=== PATIENT | female | born 1975 | race African-American/Black ===

== ENCOUNTER 2019-02-19 08:13 | Day surgery (SDC) | payer OTHER ==
[2019-02-19 08:22] LABS: Urine Appearance CLEAR; Urine Blood NEGATIVE (NEG); Urine Color YELLOW; Urine Glucose NEGATIVE (NEG); Urine Microscopic Reflex NO UMIC; Urine Protein NEGATIVE (NEG); Urine Urobilinogen 0.2 mg/dL (0.2-1.0)
--- NOTE | 2019-02-19 08:23 | RAD REPORT ---
EXAM DESCRIPTION: RAD - Chest Pa And Lat (2 Views) - 02/19/2019 8:13 am CLINICAL HISTORY: preop Chest pain. COMPARISON: No comparisons FINDINGS: The lungs are clear except for a small calcified granuloma in the left lung base posterior ly. The heart is normal in size. No displaced fractures. IMPRESSION: No acute or concerning finding suspected.
[2019-02-19 08:24] LABS: Absolute Lymphocytes (CBC) 1.8 K/uL (0.7-4.9); Absolute Monocytes 0.5 K/uL (0.1-1.3); Absolute Neutrophil 4.6 K/uL (1.8-8.0); Basophils % 0.8 % (0-1.3); Eosinophils % 0.8 % (0-4.4); Hematocrit 42.8 % (36.0-45.0); Lymphocytes % 25.8 % (15.3-44.8); MPV 10.8 fL (7.6-11.3); RBC Red Blood Cell Count 4.41 M/uL (3.86-4.86)
[2019-02-19 08:27] LABS: Urine Bilirubin NEGATIVE (NEG)
[2019-02-19] MEDS ORDERED: CEFAZOLIN SODIUM 1 GM/VIAL ONE (08:30)
[2019-02-19] MEDS ORDERED: NS 0.9% VIAL 20 ML ONE (08:30)
[2019-02-19] MEDS ORDERED: GENTAMICIN SULF 80 MG/2ML INJ ONE (08:31)
[2019-02-19] MEDS ORDERED: Ringers Lactate 1,000 ML IV ONE ×4 (08:31→15:03)
[2019-02-19] MEDS ORDERED: BACITRACIN 50000 UNIT VIAL ONE (08:31)
[2019-02-19] MEDS ORDERED: Mastisol Adhesive Liq ONE (08:31)
[2019-02-19] MEDS ORDERED: CEFAZOLIN/SWI 1gm 1 GM/10 ML SYR ONE (08:48)
[2019-02-19] MEDS ORDERED: SCOPOLAMINE HYDROBROMIDE PATCH TD ONE (08:49)
[2019-02-19] MEDS ORDERED: PROPOFOL 200 MG/20 ML VIAL IV ONE (08:49)
[2019-02-19] MEDS ORDERED: MIDAZOLAM HCL 2 MG/2 ML INJ ONE ×2 (08:49→09:36)
[2019-02-19] MEDS ORDERED: GLYCOPYRROLATE 0.2 MG/ML SYR ONE (08:50)
[2019-02-19] MEDS ORDERED: LIDOCAINE 2% MPF 5 ML VIAL ONE ×2 (08:50→14:38)
[2019-02-19] MEDS ORDERED: FENTANYL CITR 250 MCG/5 ML ONE (08:50)
[2019-02-19] MEDS ORDERED: ROCURONIUM 50 MG/5 ML VIAL IV ONE ×2 (08:51→09:58)
[2019-02-19] MEDS ORDERED: ONDANSETRON 4 MG/2 ML VIAL ONE (08:53)
[2019-02-19] MEDS ORDERED: NEOSTIGMINE 1 MG/ML -10 ML VIAL ONE (08:53)
[2019-02-19] MEDS ORDERED: LIDOCAINE JELLY 2%- 5 ML TUBE ONE (08:56)
[2019-02-19] MEDS ORDERED: LANO/MINERAL OIL/PETRO 3.5 GM ONE (09:43)
[2019-02-19] MEDS ORDERED: DEXAMETHASONE 10 MG/ML VIAL ONE (10:16)
[2019-02-19] MEDS ORDERED: EPHEDRINE SULF 50 MG/ML VIAL ONE (12:53)
[2019-02-19] MEDS ORDERED: NA CHLORIDE 0.9% 0 ML ONE (13:10)
[2019-02-19] MEDS ORDERED: EPINEPHRINE/PF 1 MG/ML AMP ONE (13:10)
[2019-02-19] MEDS ORDERED: MEPERIDINE HCL 25 MG/0.5 ML ONE (13:49)
[2019-02-19] MEDS: HYDROMORPHONE HCL 1 MG/ML INJ ONE ×3 (14:40→14:58)
[2019-02-19] MEDS ORDERED: KETOROLAC 30 MG/ML INJ ONE (14:48)
[2019-02-19] MEDS ORDERED: HYDROMORPHONE HCL 1 MG/ML INJ ONE ×2 (15:09→15:21)
[2019-02-19] MEDS: FENTANYL CITR 100 MCG/2 ML ONE ×3 (15:18→15:34)
[2019-02-19] MEDS ORDERED: HYDROCODONE/APAP 10/325 TAB ONE (16:04)
[2019-02-19] MEDS ORDERED: DIPHENHYDRAMINE 25 MG TAB/CAP ONE (16:07)
--- NOTE | 2019-02-19 17:08 | EKG ---
Test Date: 2019-02-19 Test Time: 08:02:03 [place] Sequins: ALEX MEASUREMENT RESULTS: Intervals: Rate: 63 DC: 168 QRSD: 84 QT: 398 QTc: 407 [place]: P: 57 DC: 168 QRS: 62 T: 60 INTERPRETIVE STATEMENTS: Normal sinus rhythm Possible Left atrial enlargement Borderline ECG No previous ECG available for comparison Electronically Signed On 02-19-19 17:07:34 CDT by Naveen White
--- NOTE | 2019-02-20 01:49 | OP ---
Date of Procedure: 02/19/2019 Surgeon: Arjun Howard MD Work Station Support Specialist: Jonnie. Preoperative Diagnosis: Breast descent. Postoperative Diagnosis: Breast descent. Procedure Preformed: Breast lift. Anesthesia: General. Procedure In Detail: After satisfactory induction of general anesthesia, chest was prepped with Dura Prep. Dry sterile drapes were applied in the usual manner. The right breast and left breast were rahul th done simultaneously. A 42 template was used to outline the right and left areola. A 15-blade was used to make incision and transverse and curvilinear incisions were made with a 10-blade. The inter vening skin was de-epithelialized with EpiCut or dermabrader. The flap was then elevated cephalad to wards the sternum, clavicle, and anterior axillary line on both sides simultaneously. Flap was about 1.2 cm in thickness. This was done. Then, the inferior incision was made. The intervening skin wa s formed into a cone with 2-0 PDS. Straps were elevated at the 12 o'clock, 1:30, and 3 o'clock posit ion on the right side and mirror image on the left side. Excess breast tissue was excised, and then the cone was formed and the straps were elevated. The straps were then woven in and out of pectorali s major muscle, back to the base of the cone, back to the pectoralis major, back to the base of the c one, and sewn to themselves with 2-0 PDS. This was done for 12 o'clock and 1:30 straps. The 3 o'jeffrey ck strap was sewn over the sternum at the 3 o'clock position with 2-0 Ethibond. Mirror image was don e on the left side. Excess skin was cut off. Neel's fascia suture was placed tacking the inferior flaps to the ribs, this done with 2-0 PDS. After this was done, SALOME drain was brought out of the axi lla and sewn in place with 2-0 silk. The wound was irrigated with antibiotic solution and the wound was closed in layers with 3-0 Vicryl, subcu 3-0 PDS running subcuticular followed by sitting the roxy ent up and then tissue was cored out with a 42-mm template was identified and then sewn wi th interrupted 4-0 PDS followed by 4-0 PDS running subcuticular. Dressings consisted of tincture of benzoin, Steri-Strips, 5x5s, fluffs, and [place] wrap. Amount of tissue removed from the right side was 270, left side was 276. The patient tolerated the procedure well and returned to recovery. CK Voice ID: [id number] Report ID: [id number]
== END 2019-02-19 17:33 | disposition home or self-care (01) ==
LOC: OR 08:13
PROVIDERS: ATTEND Specialist
PROC: 0HSV0ZZ Reposition Bilateral Breast, Open Approach (ICD-10-PCS; principal; 2019-02-19 09:00)
DX: N64.81 Ptosis of breast (principal)
CPT/HCPCS: 36415; 71046; 81003; 85025; 88305; 93005; J0171; J0690; J1100; J1170; J1580; J2175; J2250; J2405; J2704; J2710; J3010; J7030